=== PATIENT | male | born 2000 | race Caucasian/White ===

== ENCOUNTER 2024-01-22 16:47 | Emergency (ER) | payer OTHER, SELFPAY ==
[2024-01-22 16:48] VITALS: BMI 22.6
[2024-01-22 16:51] VITALS: BP 150/101
[2024-01-22 18:49] VITALS: BP 133/72
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
[2024-01-22] MEDS: MOTRIN 600 MG PO (19:53)
[2024-01-22 20:07] VITALS: BP 133/72
== END 2024-01-22 20:09 | disposition home or self-care (01) ==
LOC: EMR 16:47
PROVIDERS: EMERGENCY PHYSICIAN Emergency Medicine; FAMILY PHYSICIAN Family Medicine
DX: S39.012A Strain of muscle, fascia and tendon of lower back, initial encounter (principal); S16.1XXA Strain of muscle, fascia and tendon at neck level, initial encounter; S06.0X0A Concussion without loss of consciousness, initial encounter; V89.2XXA Person injured in unspecified motor-vehicle accident, traffic, initial encounter
CPT/HCPCS: 99285; 70450; 72110; 72125